=== PATIENT | male | born 1975 | race Caucasian/White ===

== ENCOUNTER 2020-04-05 21:31 | Emergency (ER) | payer SELFPAY ==
[~2020-04-05] VITALS: Ht 193 cm; Wt 77.9 kg
[2020-04-05] MEDS ORDERED: SULFAMETH./TRIMETHOPRIM DS 800MG/160MG TABLET PO ONE (22:00)
[2020-04-05] MEDS ORDERED: CEPHALEXIN 500 MG CAPSULE ONE (22:00)
[2020-04-05] MEDS ORDERED: CEPHALEXIN 500 MG CAPSULE PO ONE (22:00)
[2020-04-05] MEDS ORDERED: LIDOCAINE 2%, 20ML SQ ONE (22:00)
[2020-04-05] MEDS ORDERED: LIDOCAINE-MPF 2% ,5ML ONE (22:01)
[2020-04-05] MEDS ORDERED: SULFAMETH./TRIMETHOPRIM DS 800MG/160MG TABLET ONE (22:01)
[2020-04-05 23:15] VITALS: BP 131/73
== END 2020-04-05 23:26 | disposition home or self-care (01) ==
LOC: ED 21:56
DX: L02.415 Cutaneous abscess of right lower limb (principal); L03.115 Cellulitis of right lower limb; M54.2 Cervicalgia; F17.200 Nicotine dependence, unspecified, uncomplicated
CPT/HCPCS: 10061; 96372; 99284; J3490; 10060; 99283